=== PATIENT | male | born 1940 | race Asian ===

== ENCOUNTER 2018-12-30 06:06 | Day surgery (SDC) | payer MEDICARE ==
[2018-12-30] MEDS ORDERED: PROPOFOL 40 ML (07:14)
[2018-12-30] MEDS ORDERED: ETOMIDATE 20 MG INJ (07:14)
[2018-12-30] MEDS ORDERED: LABETALOL HCL 20MG INJ IV (07:30)
[2018-12-30] MEDS ORDERED: DIPHENHYDRAMINE 50 MG INJ IV (07:30)
[2018-12-30] MEDS ORDERED: FENTAnyl 50 MCG/ML VIAL IV (07:30)
[2018-12-30] MEDS ORDERED: MEPERIDINE 25 MG INJ IV (07:30)
[2018-12-30] MEDS ORDERED: MIDAZOLAM 1 MG/ML 2 ML INJ IV (07:30)
[2018-12-30] MEDS ORDERED: hydrALAzine 20 MG INJ IV (07:30)
[2018-12-30] MEDS ORDERED: ONDANSETRON 4 MG INJ IV (07:30)
[2018-12-30] MEDS ORDERED: HYDROmorphONE 1 MG/5 ML IV SYRINGE IV (07:30)
== END 2018-12-30 11:20 | disposition home or self-care (01) ==
LOC: GIL 06:06
DX: Z86.010 Personal history of colon polyps (principal); K64.4 Residual hemorrhoidal skin tags; K57.30 Diverticulosis of large intestine without perforation or abscess without bleeding; D12.4 Benign neoplasm of descending colon; I10 Essential (primary) hypertension; E11.9 Type 2 diabetes mellitus without complications
CPT/HCPCS: 45380; 82962; 88305